=== PATIENT | female | born 2005 | race Two or more races ===

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

== ENCOUNTER 2024-07-01 14:11 | Emergency (ER) | payer MEDICAID ==
[2024-07-01 14:30] VITALS: BP 144/95; PULSE 122
[2024-07-01] MEDS: Triamcinolone Acetonide 40 MG/ML 1 ML SDV INJECT ONE (14:38)
== END 2024-07-01 15:25 | disposition home or self-care (01) ==
LOC: VM.ED 14:11
DX: L50.0 Allergic urticaria (principal); E66.9 Obesity, unspecified; Z87.891 Personal history of nicotine dependence; Z88.8 Allergy status to other drugs, medicaments and biological substances; Z79.84 Long term (current) use of oral hypoglycemic drugs; Z79.899 Other long term (current) drug therapy
CPT/HCPCS: 87651-QW; 99283; J3301

== ENCOUNTER 2024-09-21 04:19 | Emergency (ER) | payer MEDICAID ==
[2024-09-21] MEDS: Acetaminophen 325 MG Tab PO ONE (04:49)
[2024-09-21] MEDS: Ondansetron 4 MG Tab.DIS PO ONE (04:49)
[2024-09-21] MEDS: Sodium Chloride 0.9% 1,000 ML IV ONE (05:30)
[2024-09-21] MEDS: Prochlorperazine 10 MG/2 ML SDV IV ONE (05:30)
[2024-09-21 05:44] VITALS: BP 142/82; PULSE 86
[2024-09-21 05:48] LABS: BASOPHILS PERCENT AUTO 0.3 % (0.2-1.2); EOSINOPHILS PERCENT AUTO 0.2 % (0.0-4.0); HEMOGLOBIN 12.9 g/dL (12.0-16.0); IMMATURE GRAN ABSOLUTE AUTO 0.03 x10^3/uL (0.00-0.07); LYMPHOCYTES ABSOLUTE AUTO 2.9 x10^3/uL (1.0-4.8); LYMPHOCYTES PERCENT AUTO 19.2 % (25.0-50.0); MEAN CORPUSCULAR HEMOGLOBIN 25.8 pg (26.0-32.0); MEAN CORPUSCULAR HGB CONC 34.9 g/dL (32.0-36.0); MONOCYTES ABSOLUTE AUTO 0.6 x10^3/uL (0.0-0.8); MONOCYTES PERCENT AUTO 3.8 % (2.0-11.0); NEUTROPHILS ABSOLUTE AUTO 11.5 x10^3/uL (1.8-7.7); NEUTROPHILS PERCENT AUTO 76.3 % (50.0-80.0); PLATELET COUNT,PLT 373 x10^3/uL (130-400); WHITE BLOOD CELL COUNT,WBC 15.1 x10^3/uL (4.0-10.0)
[2024-09-21 06:12] LABS: APPEARANCE,URINE SLIGHTLY CLOUDY (CLEAR); BILIRUBIN,URINE SMALL (NEGATIVE); COLOR,URINE YELLOW (YELLOW); GLUCOSE,URINE NEGATIVE (NEGATIVE); KETONES,URINE NEGATIVE (NEGATIVE); LEUKOCYTE ESTERASE,URINE NEGATIVE (NEGATIVE); NITRITE,URINE NEGATIVE (NEGATIVE); OCCULT BLOOD,URINE NEGATIVE (NEGATIVE); PROTEIN,URINE 30 mg/dL (NEGATIVE); UROBILINOGEN,URINE 0.2 EU/dL (0.2)
[2024-09-21 06:20] LABS: A/G RATIO 1.06; ALANINE AMINOTRANSFERASE,ALT 28 U/L (14-59); ALBUMIN 3.7 g/dL (3.4-5.0); ALKALINE PHOSPHATASE 94 U/L (46-116); ASPARTATE AMNIOTRANSFERASE,AST 12 U/L (15-37); BILIRUBIN TOTAL 0.8 mg/dL (0.2-1.0); BLOOD UREA NITROGEN,BUN 10 mg/dL (7-18); CALCIUM 8.6 mg/dL (8.5-10.1); CARBON DIOXIDE,CO2 26 mmol/L (21-32); CHLORIDE,CL 103 mmol/L (98-107); GLUCOSE RANDOM 145 mg/dL (70-99); POTASSIUM,K 3.9 mmol/L (3.5-5.1); PROTEIN TOTAL,TP 7.2 g/dL (6.4-8.2); SODIUM,NA 140 mmol/L (136-145)
[2024-09-21 06:22] LABS: ANION GAP 14.9 mmol/L (5-15); ESTIMATED GFR 83 mL/min (>=60)
[2024-09-21 06:23] LABS: BACTERIA,URINE MODERATE /HPF (NOT SEEN); MUCUS,URINE FEW /LPF (NOT SEEN); RBC,URINE 0-5 /HPF (NOT SEEN); SQUAMOUS EPITHELIAL CELLS,UR MANY /HPF (NOT SEEN); WBC,URINE 0-5 /HPF (NOT SEEN)
[2024-09-21] MEDS: Take Home: Ondansetron 4 MG Tab.DIS, 5 Tab Pack PO ONE (06:32)
== END 2024-09-21 06:36 | disposition home or self-care (01) ==
LOC: VM.ED 04:19
DX: R11.2 Nausea with vomiting, unspecified (principal); E66.9 Obesity, unspecified; F17.210 Nicotine dependence, cigarettes, uncomplicated; Z88.8 Allergy status to other drugs, medicaments and biological substances; Z79.84 Long term (current) use of oral hypoglycemic drugs; Z79.899 Other long term (current) drug therapy
CPT/HCPCS: 36415; 80053; 81001; 81025; 82947; 85025; 96361; 96374; 99283; 99284-25; A9270-GY; J0780; J7030; Q0162